=== PATIENT | female | born 1965 | race Caucasian/White ===

== ENCOUNTER 2019-04-16 18:23 | Emergency (ER) | payer MEDICARE, MEDICAID ==
[2019-04-16 18:30] VITALS: BP 125/72; PULSE 78
--- NOTE | 2019-04-16 19:07 | EDM.PDOC ---
ED HPI GENERAL MEDICAL PROBLEM - General Chief Complaint: Skin Complaint Stated Complaint: SWOLLEN RT ARM Time Seen by Provider: 04/16/19 19:04 Source of Information: Reports: Patient History Limitations: Reports: No Limitations - History of Present Illness INITIAL COMMENTS - FREE TEXT/NARRATIVE: s/p lipoma removal 1 1/2 weeks ago @ [facility]. yesterday started swelling and tonight looks worse. Right Middle Arm Pain Score (Numeric/FACES): 9 - Related Data Allergies Allergy/AdvReac Type Severity Reaction Status Date / Time No Known Allergies Allergy Verified 04/16/19 18:31 Home Meds: Home Meds Docusate Sodium [Doc-Q-Lace] 100 mg PO BEDTIME 11/14/14 [History] FLUoxetine [PROzac] 60 mg PO DAILY 11/14/14 [History] Ferrous Sulfate 1 tab PO BID 11/14/14 [History] Multivitamins/Iron/Folic Acid [Cerovite Advanced Formula] 1 tab PO DAILY [History] Simvastatin 40 mg PO BEDTIME 11/14/14 [History] carBAMazepine [Carbamazepine ER] 400 mg PO BID 11/14/14 [History] carBAMazepine [Tegretol XR] 100 mg PO BEDTIME 11/14/14 [History] Cholecalciferol (Vitamin D3) [Vitamin D] 400 unit PO DAILY 04/16/19 [History] Fesoterodine Fumarate [Toviaz] 4 mg PO DAILY 04/16/19 [History] Past Medical History Other HEENT History: EXOTROPIA OF LEFT EYE Other Gastrointestinal History: FAMILY HX OF COLON CANCER Other Genitourinary History: OVER ACTIVE BLADDER Other Psychiatric History: MENTAL RETARDATION; MOOD DISORDER; Other Endocrine/Metabolic History: IMPAIRED FASTING GLUCOSE Other Dermatologic History: SKULL LESION-EXCISION - Past Surgical History Other Female Surgeries/Procedures: OVARY REMOVAL Other Musculoskeletal Surgeries/Procedures:: BUNIONECTOMY NEC, FOOT TOE HAMMER REPAIR Social & Family History - Family History Family Medical History: Noncontributory - Tobacco Use Smoking Status *Q: Never Smoker Second Hand Smoke Exposure: No - Caffeine Use Caffeine Use: Reports: None - Recreational Drug Use Recreational Drug Use: No ED ROS GENERAL - Review of Systems Review Of Systems: Comprehensive ROS is negative, except as noted in HPI. ED EXAM, SKIN/RASH Exam: See Below Exam Limited By: No Limitations General Appearance: Alert, WD/WN, No Apparent Distress Ears: Hearing Grossly Normal Throat/Mouth: Normal Voice, No Airway Compromise Head: Atraumatic Neck: Non-Tender, Full Range of Motion Respiratory/Chest: No Respiratory Distress Cardiovascular: Regular Rate, Rhythm GI/Abdominal: Soft, Non-Tender Extremities: Other (right anterior forearm surgical scar good, non erythematous , no lymphangitis, NV wnl. 2" diameter firm tender mass.) Neurological: Alert, Oriented, Normal Cognition, Normal Gait, No Motor/Sensory Deficits Psychiatric: Normal Affect, Normal Mood Skin: Warm, Dry, Normal Color Location, Skin: Upper Extremity, Right Characteristics: No: Erythematous Associated features: Tenderness, Swelling. No: Lymphangitis, Inflammation, Weeping Lymphatic: No Adenopathy Course - Vital Signs Last Recorded V/S: Last Vital Signs Temp 36.9 C 04/16/19 18:27 Pulse 78 04/16/19 18:27 Resp 18 04/16/19 18:27 BP 125/72 04/16/19 18:27 Pulse Ox 97 04/16/19 18:27 - Orders/Labs/Meds Orders: Active Orders 24 hr Category Date Time Status Extremity Non Vascular Rt [US] Urgent Exams 04/16/19 19:03 Taken CULTURE BLOOD [BC] Stat Lab 04/16/19 19:10 Received Labs: Laboratory Tests 04/16/19 04/16/19 04/16/19 Range/Units 19:10 19:10 19:10 WBC 7.4 (5.0-10.0) 10^3/uL RBC 3.60 L (4.2-5.4) 10^6/uL Hgb 11.4 L (12.0-16.0) g/dL Hct 34.3 L (37.0-47.0) % MCV 95.3 (80-100) fL MCH 31.7 (27.0-34.0) pg MCHC 33.2 (33.0-35.0) g/dL Plt Count 337 (150-450) 10^3/uL Neut % (Auto) 57.7 (42.2-75.2) % Lymph % (Auto) 32.8 (20.5-50.1) % Becker % (Auto) 9.2 H (2-8) % Eos % (Auto) 0.0 L (1.0-3.0) % Baso % (Auto) 0.3 (0.0-1.0) % Sodium 140 (135-145) mmol/L Potassium 3.8 (3.6-5.0) mmol/L Chloride 105 (101-111) mmol/L Carbon Dioxide 27.0 (21.0-31.0) mmol/L Anion Gap 11.8 BUN 17 (7-18) mg/dL Creatinine 0.7 (0.6-1.3) mg/dL Est Cr Clr Drug Dosing TNP Estimated GFR (MDRD) > 60 BUN/Creatinine Ratio 24.28 Glucose 129 H (74-105) mg/dL Lactic Acid 1.2 (0.5-2.2) mmol/L Calcium 8.8 (8.4-10.2) mg/dl Total Bilirubin 0.5 (0.2-1.0) mg/dL AST 28 (10-42) IU/L ALT 26 (10-60) IU/L Alkaline Phosphatase 73 (42-121) IU/L Total Protein 6.8 (6.7-8.2) g/dl Albumin 3.8 (3.2-5.5) g/dl Globulin 3.0 Albumin/Globulin Ratio 1.27 - Re-Assessments/Exams Free Text/Narrative Re-Assessment/Exam: 04/16/19 20:17 results discussed with caretakers and Pt. Departure - Departure Time of Disposition: 20:18 Disposition: Home, Self-Care 01 Condition: Good Clinical Impression: Lipoma of arm Qualifiers: Laterality: right Qualified Code(s): D17.21 - Benign lipomatous neoplasm of skin and subcutaneous tissue of right arm - Discharge Information Forms: ED Department Discharge Additional Instructions: 1) notify surgeon Friday for follow up Sepsis Event Note - Evaluation Sepsis Screening Result: No Definite Risk - Focused Exam Vital Signs: Vital Signs Temp Pulse Resp BP Pulse Ox 04/16/19 18:27 36.9 C 78 18 125/72 97 Date Exam was Performed: 04/16/19 Time Exam was Performed: 20:17 - My Orders Last 24 Hours: My Active Orders 04/16/19 19:03 Extremity Non Vascular Rt [US] Urgent 04/16/19 19:10 CULTURE BLOOD [BC] Stat - Assessment/Plan Last 24 Hours: My Active Orders 04/16/19 19:03 Extremity Non Vascular Rt [US] Urgent 04/16/19 19:10 CULTURE BLOOD [BC] Stat
[2019-04-16 19:35] LABS: ANION GAP 11.8; CHLORIDE,CL 105 mmol/L (101-111); SODIUM,NA 140 mmol/L (135-145)
== END 2019-04-16 20:22 | disposition home or self-care (01) ==
LOC: DL.ED 18:23
DX: D17.21 Benign lipomatous neoplasm of skin and subcutaneous tissue of right arm (principal); Z79.899 Other long term (current) drug therapy
CPT/HCPCS: 36415; 76881-RT; 80053; 83605; 85025; 87040; 99284-25

== ENCOUNTER 2019-05-12 19:55 | Emergency (ER) | payer MEDICARE, MEDICAID ==
[2019-05-12 21:32] VITALS: BP 144/74; PULSE 63
[2019-05-12] MEDS ORDERED: Ibuprofen 600 MG Tab PO ONE (21:40)
--- NOTE | 2019-05-12 21:44 | EDM.PDOC ---
ED HPI GENERAL MEDICAL PROBLEM - General Chief Complaint: Abdominal Pain Stated Complaint: LEFT FLANK PAIN Time Seen by Provider: 05/12/19 21:41 Source of Information: Reports: Patient History Limitations: Reports: No Limitations - History of Present Illness INITIAL COMMENTS - FREE TEXT/NARRATIVE: pt c/o pain in left buttocks area shooting down left leg. states nerve pain. tylenol help but now pain back. Left Hip Pain Score (Numeric/FACES): 9 - Related Data Allergies Allergy/AdvReac Type Severity Reaction Status Date / Time No Known Allergies Allergy Verified 05/12/19 21:26 Home Meds: Home Meds Docusate Sodium [Doc-Q-Lace] 100 mg PO BEDTIME 11/14/14 [History] FLUoxetine [PROzac] 60 mg PO DAILY 11/14/14 [History] Ferrous Sulfate 1 tab PO BID 11/14/14 [History] Multivitamins/Iron/Folic Acid [Cerovite Advanced Formula] 1 tab PO DAILY [History] Simvastatin 40 mg PO BEDTIME 11/14/14 [History] carBAMazepine [Carbamazepine ER] 400 mg PO BID 11/14/14 [History] carBAMazepine [Tegretol XR] 100 mg PO BEDTIME 11/14/14 [History] Cholecalciferol (Vitamin D3) [Vitamin D] 400 unit PO DAILY 04/16/19 [History] Fesoterodine Fumarate [Toviaz] 4 mg PO DAILY 04/16/19 [History] Past Medical History Other HEENT History: EXOTROPIA OF LEFT EYE Other Gastrointestinal History: FAMILY HX OF COLON CANCER Other Genitourinary History: OVER ACTIVE BLADDER Other Psychiatric History: MENTAL RETARDATION; MOOD DISORDER; Other Endocrine/Metabolic History: IMPAIRED FASTING GLUCOSE Other Dermatologic History: SKULL LESION-EXCISION - Past Surgical History Other Female Surgeries/Procedures: OVARY REMOVAL Other Musculoskeletal Surgeries/Procedures:: BUNIONECTOMY NEC, FOOT TOE HAMMER REPAIR Social & Family History - Family History Family Medical History: Noncontributory - Tobacco Use Smoking Status *Q: Never Smoker - Caffeine Use Caffeine Use: Reports: None - Recreational Drug Use Recreational Drug Use: No ED ROS GENERAL - Review of Systems Review Of Systems: Comprehensive ROS is negative, except as noted in HPI. ED EXAM, GENERAL - Physical Exam Exam: See Below Exam Limited By: No Limitations General Appearance: Alert, WD/WN, No Apparent Distress Ears: Hearing Grossly Normal Throat/Mouth: Normal Voice, No Airway Compromise Head: Atraumatic Neck: Non-Tender, Full Range of Motion Respiratory/Chest: No Respiratory Distress Cardiovascular: Regular Rate, Rhythm GI/Abdominal: Soft, Non-Tender Extremities: Other (left sciatica, gait limited to discomfort) Neurological: Alert, Oriented, Normal Cognition, No Motor/Sensory Deficits Psychiatric: Flat Affect Skin Exam: Warm, Dry, Normal Color Lymphatic: No Adenopathy Course - Vital Signs Last Recorded V/S: Last Vital Signs Temp 35.8 C 05/12/19 21:27 Pulse 63 05/12/19 21:27 Resp 16 05/12/19 21:27 BP 144/74 H 05/12/19 21:27 Pulse Ox 98 05/12/19 21:27 - Orders/Labs/Meds Orders: Active Orders 24 hr Category Date Time Status Ibuprofen [Motrin] Med 05/12/19 21:40 Once 600 mg PO ONETIME ONE Departure - Departure Time of Disposition: 21:42 Disposition: Home, Self-Care 01 Condition: Good Clinical Impression: Sciatica of left side - Discharge Information Instructions: Sciatica, [id number] Additional Instructions: 1) no bending lifting straining 2) try ice or heat to sore area 3) take tylenol or motrin for pain 4) see clinic tomorrow for MRI SCAN for left sciatica Sepsis Event Note - Evaluation Sepsis Screening Result: No Definite Risk - Focused Exam Vital Signs: Vital Signs Temp Pulse Resp BP Pulse Ox 05/12/19 21:27 35.8 C 63 16 144/74 H 98 Date Exam was Performed: 05/12/19 Time Exam was Performed: 21:40 - My Orders Last 24 Hours: My Active Orders 05/12/19 21:40 Ibuprofen [Motrin] 600 mg PO ONETIME ONE - Assessment/Plan Last 24 Hours: My Active Orders 05/12/19 21:40 Ibuprofen [Motrin] 600 mg PO ONETIME ONE
== END 2019-05-12 21:57 | disposition home or self-care (01) ==
LOC: DL.ED 19:55
DX: M54.32 Sciatica, left side (principal)
CPT/HCPCS: 99283; A9270; 99282